=== PATIENT | female | born 1965 | race Caucasian/White ===

== ENCOUNTER 2016-06-17 14:24 | Outpatient (CLI) | payer OTHER ==
[~2016-06-17] VITALS: Ht 149.9 cm; Wt 90.0 kg
[2016-06-17 14:32] VITALS: BP 137/84; PULSE 87; RESP 16; Ht 149.9 cm; Wt 90.0 kg
[2016-06-17] MEDS ORDERED: ATOR40TA68 PO (14:37)
[2016-06-17] MEDS ORDERED: HYD25 PO (14:37)
[2016-06-17] MEDS ORDERED: ESCI10TA PO (14:37)
[2016-06-17] MEDS ORDERED: CLOP75TA27 PO (14:37)
--- NOTE | 2016-06-17 14:51 | PN ---
Date/Time of Note Date/Time of Note DATE: 06/17/16 TIME: 14:51 Outpatient Progress Note Chief Complaint CVA/hypertension/PUD/hyperlipidemia/depression HPI CVA/patient had recently acute CVA, patient has left upper and lower extremity slight weakness, no seizure, no dysphagia, much improved, patient able to walk, feels slight numbness, no headache, no impaired vision, Hypertension/denies any headache dizziness lightheadedness, no blurry vision, no impaired vision, no blood in the urine, PUD/no nausea vomiting, no hematemesis or melena, Hyperlipidemia/no xanthoma, on medication, no side effect of medication, Depression/patient has history of depression, patient is not taking any medication at present, feeling fine at present, no suicidal idea, Review of Systems Const: No Fever, no chills, no Wt. loss, no Fatigue, normal appetite, no diaphoresis. Eyes: No pain, no discharge, no redness, no visual change, no foreign body. ENT: No pain, no bleeding, no congestion, no sore throat, no dysphagia, no discharge or rhinitis. Lymph: No adenopathy, no tender nodes, no lymphedema. Resp: No SOB, no cough, no sputum, no wheezing, no chest pain. CV: No chest pain, no palpitaions, no CHAO, no PND, no edema. GI: Normal appetite, no pain, no nausea, no vomiting, no diarrhea, no blood, no constipation. : No frequency, no urgency, no dysuria, no hematuria, no flank pain, no discharge, no bleeding. Musc:, no back pain, no neck pain, no knee pain, no restricted ROM. Skin: No rash, no skin lesions, no erythema, no laceration, no bruising, no pruritus. Neuro: No MUNGUIA, no dizziness, no syncope, no seizure, left upper and lower x-ray weakness, minimal numbness, more in the leg slight difficulty in walking, Endo: No polyuria, no polydypsia, no dry-skin, no temp-intolerance. Psych: No hallucinations, no depression, no anxiety, no suicidal ideation. Ext: No edema, no pain, no ulcer, left upper and lower axillary weakness, slight numbness, slight difficulty in walking, Physical Exam Vital Signs Date Time Temp Pulse Resp B/P Pulse Ox O2 Delivery O2 Flow Rate FiO2 06/17/16 14:32 98.2 87 16 137/84 96 Room Air General Appearance: A 51 year-old female who appears well-developed, well- nourished, in no acute distress. HEENT: Head normocephalic, atraumatic. Pupils equal, round, reactive to light and accommodate. Sclerae are no jaundice. Nasal turbinates pink without erythema or nasal discharge. Mucous membranes pink and moist without lesions. Oropharynx clear without any exudate or discharge. NECK: Supple. Trachea midline, No thyromegaly, No cervical lymphadenopathy, No mass, No carotid bruits, No JVD, Carotid pulses 2+ bilaterally. PULMONARY: Clear to auscultaion bilaterally, No retractions, Chest expansion symmetric bilaterally, no rales, no ronchi, no dulness on percussion. CARDIAC: Normal SI and S2, Regular rate and rythm, no murmur, gallop, or rub. GASTROINTESTINAL: Abdomen is soft, non-tender, Non Rigid, No distention, Positive bowel sounds x4 quadrants, Liver normal. SKIN: Warm, dry, no rash, no bruise, no echmosis. EXTREMITIES: Bilateral lower extremities normal, no edema, no phlabitus, pulse palpable, no contracture. MUSCULOSKELETAL: Spine Normal, Non-tender, Normal range of motion, No swelling, no deformity, no clubbing, or cyanosis, the patient has no edema to bilateral lower extremities, dorsalis pedis pulses palpable bilaterally. NEUROLOGIC: The patient is awake, alert, oriented, responding to yes/no questions appropriately, moving all extremities,cranial nerve intact, slightly reduced strenght, on left upper and lower axillary, minimally reduced power, normal coordination, minimally unsteady gait. Allergies Coded Allergies: No Known Drug Allergies (Verified Allergy, Unknown, 06/17/16) PMH Hypertension/hyperlipidemia/PUD/depression/TIA/CVA recently Uterine cancer/appendectomy/ section/hysterectomy/МАРИНА and BSQ Social Hx No smoking, no drinking, patient used to smoke, but not heavy, and has stopped recently, Family Hx Mother has diabetes, hypertension, Father has hypertension, Sister has hypertension and diabetes, Brother has hypertension, Assessment/Plan Impression CVA/hypertension/PUD/hyperlipidemia/depression Plan Patient education done, patient encouraged to increase activity, fall precaution , lose weight, control blood pressure, Patient encouraged to take medication regularly, Patient encouraged to follow with the primary care physician, Patient explained exercise and how to do it and fall precaution, Patient has all the medication, Medications Home Meds Reported Medications Clopidogrel Bisulfate (Clopidogrel) 75 Mg Tablet, 75 MG PO DAILY, #30 TAB 06/17/16 Hydrochlorothiazide* (Hydrochlorothiazide*) 25 Mg Tab, 25 MG PO DAILY, #30 TAB 06/17/16 Escitalopram Oxalate* (Lexapro*) 10 Mg Tablet, 10 MG PO DAILY, #30 TAB 06/17/16 Atorvastatin* (Atorvastatin*) 40 Mg Tablet, 40 MG PO QHS, #30 TAB 06/17/16 LOVE CARSON MD Jun 17, 2016 14:51
== END 2016-06-17 16:40 | disposition home or self-care (01) ==
LOC: DCC 14:24
PROVIDERS: ATTEND Internal Medicine
DX: I63.9 Cerebral infarction, unspecified (principal); I10 Essential (primary) hypertension; K27.9 Peptic ulcer, site unspecified, unspecified as acute or chronic, without hemorrhage or perforation; E78.5 Hyperlipidemia, unspecified; F32.9 Major depressive disorder, single episode, unspecified
CPT/HCPCS: G0463

== ENCOUNTER 2016-07-03 11:36 | Outpatient (CLI) | payer OTHER ==
[~2016-07-03] VITALS: Ht 149.9 cm; Wt 90.0 kg
[~2016-07-03 11:36] MED LIST: ATOR40TA68 PO; CLOP75TA27 PO; ESCI10TA PO; HYD25 PO
[2016-07-03 11:48] VITALS: BP 138/82; PULSE 85; RESP 18; Ht 149.9 cm; Wt 90.0 kg
--- NOTE | 2016-07-03 15:32 | PN ---
Date/Time of Note Date/Time of Note DATE: 07/03/16 TIME: 11:44 Outpatient Progress Note Chief Complaint Hypertension/CVA/hyperlipidemia/PUD HPI Hypertension/no headache or dizziness: Patient blood pressure was 180/100 and 200/105 few days ago, and patient and ended up in the ER, at that time patient blood pressure was 149, and patient was discharged home, patient very anxious and nervous, at present patient does not have any headache or dizziness, CVA/no headache or dizziness, patient had minimal weakness, from the old stroke much improved, patient able to walk without any support, no fall, no dysphagia, no seizure, Hyperlipidemia/no xanthoma, on medication, side effect, PUD/no nausea vomiting, hematemesis melena, Review of Systems Const: [No Fever, no chills, no Wt. loss, no Fatigue, normal appetite, no diaphoresis.] Eyes: [No pain, no discharge, no redness, no visual change, no foreign body.] ENT: [No pain, no bleeding, no congestion, no sore throat, no dysphagia, no discharge or rhinitis.] Lymph: [No adenopathy, no tender nodes, no lymphedema.] Resp: [No SOB, no cough, no sputum, no wheezing, no chest pain.] CV: [No chest pain, no palpitaions, no CHAO, no PND, no edema.] GI: [Normal appetite, no pain, no nausea, no vomiting, no diarrhea, no blood, no constipation.] : [No frequency, no urgency, no dysuria, no hematuria, no flank pain, no discharge, no bleeding.] Musc: [No bone/joint pain, no back pain, no neck pain, no knee pain, no restricted ROM.] Skin: [No rash, no skin lesions, no erythema, no laceration, no bruising, no pruritus.] Neuro: [No MUNGUIA, no dizziness, no syncope, no seizure, no focal-weakness.] Endo: [No polyuria, no polydypsia, no dry-skin, no temp-intolerance.] Psych: [No hallucinations, no depression, no anxiety, no suicidal ideation.] Ext: [No edema, no pain, no ulcer, minimal left side weakness.] Physical Exam Vital Signs Date Time Temp Pulse Resp B/P Pulse Ox O2 Delivery O2 Flow Rate FiO2 07/03/16 11:48 98.3 85 18 138/82 96 Room Air General Appearance: A 51] year-old [G female [who appears well-developed, well- nourished, in no acute distress.] HEENT: [Head normocephalic, atraumatic. Pupils equal, round, reactive to light and accommodate. Sclerae are no jaundice. Nasal turbinates pink without erythema or nasal discharge. Mucous membranes pink and moist without lesions. Oropharynx clear without any exudate or discharge.] NECK: [Supple. Trachea midline, No thyromegaly, No cervical lymphadenopathy, No mass, No carotid bruits, No JVD, Carotid pulses 2+ bilaterally.] PULMONARY: [Clear to auscultaion bilaterally, No retractions, Chest expansion symmetric bilaterally, no rales, no ronchi, no dulness on percussion.] CARDIAC: [Normal SI and S2, Regular rate and rythm, no murmur, gallop, or rub.] GASTROINTESTINAL: [Abdomen is soft, non-tender, Non Rigid, No distention, Positive bowel sounds x4 quadrants, Liver normal.] SKIN: [Warm, dry, no rash, no bruise, no echmosis.] EXTREMITIES: [Bilateral lower extremities normal, except minimal weakness in the left side, no edema, no phlabitus, pulse palpable, no contracture.] MUSCULOSKELETAL: [Spine Normal, Non-tender, Normal range of motion, No swelling , no deformity, no clubbing, or cyanosis, the patient has no edema to bilateral lower extremities, dorsalis pedis pulses palpable bilaterally.] NEUROLOGIC: [The patient is awake, alert, oriented, responding to yes/no questions appropriately, moving all extremities, cranial nerve intact, normal strenght, normal power, normal coordination, normal gait.] Allergies Coded Allergies: No Known Drug Allergies (Verified Allergy, Unknown, 06/17/16) PMH No change Social Hx No change Family Hx No change Assessment/Plan Impression Hypertension/CVA/hyperlipidemia/PUD Plan Patient has all medication, patient was recently seen in emergency room because of anxiety and high blood pressure, patient blood pressure in the emergency room was 149 systolic, and patient was sent home, without any medication, Patient education done about anxiety and how to take a blood pressure, Patient given a prescription for clonidine 0.1 mg p.o. every 6 hours as needed for blood pressure 160 or systolic or above, and not to give blood pressure medication if heart rate is below 50 Patient to follow with the primary care physician, Medications Home Meds Reported Medications Clopidogrel Bisulfate (Clopidogrel) 75 Mg Tablet, 75 MG PO DAILY, #30 TAB 06/17/16 Hydrochlorothiazide* (Hydrochlorothiazide*) 25 Mg Tab, 25 MG PO DAILY, #30 TAB 06/17/16 Escitalopram Oxalate* (Lexapro*) 10 Mg Tablet, 10 MG PO DAILY, #30 TAB 06/17/16 Atorvastatin* (Atorvastatin*) 40 Mg Tablet, 40 MG PO QHS, #30 TAB 06/17/16 LOVE CARSON MD Jul 03, 2016 11:54
== END 2016-07-03 16:29 | disposition home or self-care (01) ==
LOC: DCC 11:36
PROVIDERS: ATTEND Internal Medicine
DX: I10 Essential (primary) hypertension (principal); I63.9 Cerebral infarction, unspecified; E78.5 Hyperlipidemia, unspecified; K27.9 Peptic ulcer, site unspecified, unspecified as acute or chronic, without hemorrhage or perforation